=== PATIENT | male | born 1945 | race Caucasian/White ===

== ENCOUNTER 2016-06-05 11:22 | Inpatient (IN) | payer MEDICARE, OTHER ==
[~2016-06-05] VITALS: Ht 182.9 cm; Wt 167.1 kg
[2016-06-05] VITALS (8 sets, daily range): BP systolic 109–165; BP diastolic 57–86; PULSE 87–136; RESP 16–28; TEMP 97.4–99.1; O2SAT 94–98
[~2016-06-05 11:22] MED LIST: CELE100C OR; CEPH500C3 PO; LISI-360 PO; SULF-154 PO; VENTAER INH
[2016-06-05] MEDS ORDERED: SODIUM CHLORIDE 0.9% FLUSH 10 ML FLUSH IVF PRN (12:00)
[2016-06-05] MEDS ORDERED: SODIUM CHLOR 0.9% 1000 ML INJ 1,000 ML IV ONE (12:00)
--- NOTE | 2016-06-05 12:01 | PD ---
HPI Chief Complaint: Neuro Symptoms/ Deficits Time Seen by Provider: 12:01 Travel History International Travel<30 days: No Contact w/Intl Traveler<30days: No Traveled to known affect area: No History of Present Illness HPI 70-year-old male with history of hypertension and alcohol dependency, presents to emergency department for evaluation. The patient states that yesterday he had a brief episode where his speech was slurred. His states that it sounded similar to when he is drinking however the patient states he did not have anything to drink yesterday morning. This resolved and the patient was able to go about stay normally. Today he was working outside and when he came into his gradually began to tremor. Patient states he only has a slight resting tremor but this was full-body. His gave rate in a sugar he hasn't seemed to resolve. Patient denies any chest pain or tightness. He does report a Mild headache without any other focal deficits or weakness. Denies any recent illnesses, fever, chills. Patient states that he drinks 1-2 pints of vodka daily and stopped abruptly 2 days ago following an argument with his . He has no other symptoms to report this time. [facility] Past Medical History Arthritis: Yes Asthma: Yes Blood Disorders: No Cancer: No Cardiovascular Problems: Yes (MURMUR) Diabetes: No Diminished Hearing: No Endocrine: No Glaucoma: No Genitourinary: No Hepatitis: No Hiatal Hernia: No Hypertension: Yes Immune Disorder: No Medical other: Yes (hx of asthma) Musculoskeletal: Yes Neurologic: No Psychiatric: No Reproductive: No Respiratory: Yes (SLEEP APNEA, ASTHMA) Thyroid Disease: No Past Surgical History Abdominal Surgery: Yes (LEFT ING. HERNIA REP) Appendectomy: Yes Joint Replacement: Yes (BILAT KNEE) Oral Surgery: Yes (T & A) Pacemaker: No Other Surgery: Yes Social History Alcohol Use: Yes (DAILY, last drink 2 days ago ) Tobacco Use: No Substance Use: No Allergies-Medications (Allergen,Severity, Reaction): Coded Allergies: No Known Allergies (Verified , 06/05/16) Reported Meds & Prescriptions Reported Meds & Active Scripts Active Reported Lisinopril 10 Mg Tab 10 Mg PO DAILY Singulair (Montelukast Sodium) 5 Mg Chew Unknown Dose CHEW HS Ventolin Hfa 18 GM Inh (Albuterol Sulfate) 90 Mcg/Act Aer 1 Puff INH Q4H PRN Review of Systems Except as stated in HPI: all other systems reviewed are Neg Physical Exam Narrative GENERAL: Obese male patient, sitting up in bed, in no acute distress SKIN: Focused skin assessment warm/dry. HEAD: Atraumatic. Normocephalic. EYES: Pupils equal and round. No scleral icterus. No injection or drainage. ENT: No nasal bleeding or discharge. Mucous membranes pink and moist. NECK: Trachea midline. No JVD. CARDIOVASCULAR: Tachycardic rate and rhythm. No murmur appreciated. RESPIRATORY: No accessory muscle use. Diminished, likely due to girth, slight expiratory wheeze, intermittent to auscultation. Breath sounds equal bilaterally. GASTROINTESTINAL: Abdomen rotund soft, non-tender, nondistended. Hepatic and splenic margins not palpable. MUSCULOSKELETAL: No obvious deformities. No clubbing. No cyanosis. No edema. NEUROLOGICAL: Awake and alert. No obvious cranial nerve deficits. Motor grossly within normal limits. Normal speech. PSYCHIATRIC: Appropriate mood and affect; insight and judgment normal. Data Data Last Documented VS Vital Signs Date Time Temp Pulse Resp B/P Pulse Ox O2 Delivery O2 Flow Rate FiO2 06/05/16 13:48 110 18 141/80 94 Room Air 06/05/16 11:24 99.1 Orders Electrocardiogram (06/05/16 11:59) Prothrombin Time / Inr (Pt) (06/05/16 11:59) Act Partial Throm Time (Ptt) (06/05/16 11:59) Complete Blood Count With Diff (06/05/16 11:59) Comprehensive Metabolic Panel (06/05/16 11:59) Drug Screen, Random Urine (06/05/16 11:59) Troponin I (06/05/16 11:59) Urinalysis - C+S If Indicated (06/05/16 11:59) Ct Brain W/O Iv Contrast(Rout) (06/05/16 11:59) Chest, Single Ap (06/05/16 11:59) Ecg Monitoring (06/05/16 11:59) Iv Access Insert/Monitor (06/05/16 11:59) Oximetry (06/05/16 11:59) Sodium Chloride 0.9% Flush (Ns Flush) (06/05/16 12:00) Sodium Chlor 0.9% 1000 Ml Inj (Ns 1000 M (06/05/16 12:00) Lorazepam Inj (Ativan Inj) (06/05/16 13:30) Labs Laboratory Tests Test 06/05/16 12:05 White Blood Count 13.5 TH/MM3 Red Blood Count 4.65 MIL/MM3 Hemoglobin 15.0 GM/DL Hematocrit 44.3 % Mean Corpuscular Volume 95.2 FL Mean Corpuscular Hemoglobin 32.3 PG Mean Corpuscular Hemoglobin 33.9 % Concent Red Cell Distribution Width 15.1 % Platelet Count 311 TH/MM3 Mean Platelet Volume 7.3 FL Neutrophils (%) (Auto) 91.8 % Lymphocytes (%) (Auto) 4.4 % Monocytes (%) (Auto) 3.1 % Eosinophils (%) (Auto) 0.1 % Basophils (%) (Auto) 0.6 % Neutrophils # (Auto) 12.4 TH/MM3 Lymphocytes # (Auto) 0.6 TH/MM3 Monocytes # (Auto) 0.4 TH/MM3 Eosinophils # (Auto) 0.0 TH/MM3 Basophils # (Auto) 0.1 TH/MM3 CBC Comment DIFF FINAL Differential Comment Prothrombin Time 10.6 SEC Prothromb Time International 1.0 RATIO Ratio Activated Partial 25.2 SEC Thromboplast Time Sodium Level 137 MEQ/L Potassium Level 3.9 MEQ/L Chloride Level 102 MEQ/L Carbon Dioxide Level 25.5 MEQ/L Anion Gap 10 MEQ/L Blood Urea Nitrogen 14 MG/DL Creatinine 1.19 MG/DL Estimat Glomerular Filtration 61 ML/MIN Rate Random Glucose 125 MG/DL Calcium Level 9.1 MG/DL Total Bilirubin 0.9 MG/DL Aspartate Amino Transf 12 U/L (AST/SGOT) Alanine Aminotransferase 26 U/L (ALT/SGPT) Alkaline Phosphatase 105 U/L Troponin I LESS THAN 0.02 NG/ML Total Protein 7.3 GM/DL Albumin 3.5 GM/DL [facility] Medical Decision Making Medical Screen Exam Complete: Yes Emergency Medical Condition: Yes Medical Record Reviewed: Yes Differential Diagnosis TIA versus CVA versus elect slight abnormality versus alcohol withdrawal versus DTs Narrative Course 70-year-old male presents to emergency department for evaluation. Patient had an isolated episode yesterday of slurred speech. Today he had an episode of tremors. Patient stops drinking alcohol 2 days ago. He is tachycardic here in the emergency department. He has no focal deficits or weakness. CT imaging of the brain is without acute concern. Chest x-ray is without acute concern. He is with mild leukocytosis of 13.5, mild neutrophilia of 12.4. CBC is without acute concern. Troponin is less than 0.02. After IV fluids, patient remains tachycardic. I discussed the patient maintaining physician Dr. Herring who agrees the patient benefit from observation for further possible TIA workup and alcohol withdrawal.. At then placed to [facility] with a primary care provider is Dr. Yesenia Miles. I spoke with Dr. Muhammad. Patient will be admitted the patient to [facility]. Diagnosis Primary Impression: TIA (transient ischemic attack) Qualified Code: G45.9 - Transient cerebral ischemia, unspecified type Additional Impression: Alcohol withdrawal Qualified Code: F10.239 - Alcohol withdrawal, with unspecified complication Admitting Information Admitting Physician Requests: Observation Condition: Stable Joie Hernadez Jun 05, 2016 12:01
[2016-06-05] MEDS ORDERED: VENTAER INH (12:02)
[2016-06-05] MEDS ORDERED: MONT5CHW2 CHEW (12:02)
[2016-06-05] MEDS ORDERED: LISI10TA3 PO (12:02)
[2016-06-05 12:16] LABS: AUTOMATED NEUTROPHIL # 12.4 TH/MM3 (1.8-7.7); BASOPHIL # 0.1 TH/MM3 (0-0.2); BASOPHIL % 0.6 % (0.0-2.0); EOSINOPHIL % 0.1 % (0.0-4.0); HEMATOCRIT 44.3 % (39.0-51.0); HEMO FLAGS DIFF FINAL; LYMPH % 4.4 % (9.0-44.0); LYMPHOCYTE # 0.6 TH/MM3 (1.0-4.8); MEAN CELL VOLUME 95.2 FL (80.0-100.0); MEAN CORPUSCULAR HEMOGLOBIN 32.3 PG (27.0-34.0); MEAN CORPUSCULAR HGB CONC 33.9 % (32.0-36.0); MONO % 3.1 % (0.0-8.0); NEUT % 91.8 % (16.0-70.0); PLATELET COUNT 311 TH/MM3 (150-450); RED BLOOD COUNT 4.65 MIL/MM3 (4.50-5.90); RED CELL DISTRIBUTION WIDTH 15.1 % (11.6-17.2); WHITE BLOOD COUNT 13.5 TH/MM3 (4.0-11.0)
[2016-06-05 12:26] LABS: APTT (PATIENT) 25.2 SEC (24.3-30.1); PROTHROMBIN TIME - PATIENT 10.6 SEC (9.8-11.6)
[2016-06-05 12:37] LABS: ALT (GPT) 26 U/L (12-78); ANION GAP 10 MEQ/L (5-15); AST (GOT) 12 U/L (15-37); BICARBONATE 25.5 MEQ/L (21.0-32.0); BLOOD UREA NITROGEN 14 MG/DL (7-18); CHLORIDE 102 MEQ/L (98-107); GLOMERULAR FILTRATION RATE 61 ML/MIN (>89); POTASSIUM 3.9 MEQ/L (3.5-5.1); SODIUM (NA) 137 MEQ/L (136-145)
[2016-06-05 12:40] LABS: ALKALINE PHOSPHATASE 105 U/L (45-117); TOTAL BILIRUBIN ADULT 0.9 MG/DL (0.2-1.0)
--- NOTE | 2016-06-05 13:04 | RADRPT ---
EXAM DATE/TIME: 06/05/2016 12:42 [facility] COMPARISON: No previous studies available for comparison. INDICATIONS : Episode of skakiness and diaphoretic today. RADIATION DOSE: 42.76 CTDIvol (mGy) MEDICAL HISTORY : Cardiovascular disease. Hypertension. SURGICAL HISTORY : Appendectomy. ENCOUNTER: Initial ACUITY: 1 day PAIN SCALE: 0/10 LOCATION: cranial TECHNIQUE: Multiple contiguous axial images were obtained of the head. Using automated exposure control and adj ustment of the mA and/or kV according to patient size, radiation dose was kept as low as reasonably a chievable to obtain optimal diagnostic quality images. FINDINGS: CEREBRUM: The ventricles are normal for age. No evidence of midline shift, mass lesion, hemorrhage or acute in farction. No extra-axial fluid collections are seen. POSTERIOR FOSSA: The cerebellum and brainstem are intact. The 4th ventricle is midline. The cerebellopontine angle i s unremarkable. EXTRACRANIAL: The visualized portion of the orbits is intact. SKULL: The calvaria is intact. No evidence of skull fracture. CONCLUSION: Negative for acute process. Chirag Painting MD FACR on June 05, 2016 at 13:02 Board Certified Radiologist. This report was verified electronically.
--- NOTE | 2016-06-05 13:18 | RADRPT ---
EXAM DATE/TIME: 06/05/2016 12:27 [facility] COMPARISON: No previous studies available for comparison. INDICATIONS : Short of Breath MEDICAL HISTORY : Cardiovascular disease. Hypertension SURGICAL HISTORY : Appendectomy. ENCOUNTER: Initial ACUITY: 1 day PAIN SCORE: 0/10 LOCATION: Bilateral chest FINDINGS: A single view of the chest demonstrates the lungs to be symmetrically aerated without evidence of mas s, infiltrate or effusion. The cardiomediastinal contours are unremarkable. Osseous structures are intact. CONCLUSION: No acute disease. Chirag Painting MD FACR on June 05, 2016 at 13:08 Board Certified Radiologist. This report was verified electronically.
[2016-06-05] MEDS ORDERED: LORazepam 2 MG/ML VIAL IV PUSH ONE (13:30)
[2016-06-05 14:21] LABS: BACTERIA, URINE MANY /hpf; BLOOD, URINE MOD (NEG); GLUCOSE,URINE NEG (NEG); HYALINE CAST, URINE 20 /lpf (RARE); KETONE, URINE TRACE mg/dL (NEG); MUCUS URINE MOD /lpf (OCC); NITRITE,URINE NEG (NEG); PH, URINE 5.5 (5.0-8.5); SQUAMOUS EPITHELIAL CELL URINE 1 /hpf (0-5); URINE COLOR YELLOW (YELLW/STRAW)
[2016-06-05 14:25] LABS: COMMENT (UR) CATH-CULTURE IND; CULTURE IF INDICATED CATH CULTURE IND
[2016-06-05 14:59] LABS: AMPHETAMINE, URINE NEG (NEG); BARBITURATES, URINE NEG (NEG); COCAINE, URINE NEG (NEG)
[2016-06-05] MEDS ORDERED: LORazepam 2 MG/ML VIAL IV PUSH PRN ×3 (15:00)
[2016-06-05] MEDS ORDERED: SODIUM CHLORIDE 0.9% FLUSH 10 ML FLUSH IV FLUSH PRN (15:00)
[2016-06-05] MEDS ORDERED: CEFTRIAXONE PED IV SCH (15:00)
[2016-06-05] MEDS ORDERED: LORazepam 1 MG TAB PO PRN (15:00)
[2016-06-05] MEDS ORDERED: FLUMAZENIL 0.5 MG/5 ML VIAL IV PUSH PRN (15:00)
[2016-06-05] MEDS ORDERED: LORazepam 2 MG TAB PO PRN (15:00)
[2016-06-05] MEDS: SODIUM CHLOR 0.9% 1000 ML INJ 1,000 ML IV SCH ×2 (16:11→17:51)
[2016-06-05] MEDS: ASPIRIN 81 MG CHEW TAB PO SCH (16:11)
[2016-06-05] MEDS: HEPARIN SODIUM - SQ 10,000 UNITS/ML VIAL SQ SCH (16:11)
[2016-06-05] MEDS ORDERED: ceFAZolin 1,000 MG/NS 100 ML IV SCH ×2 (17:00)
[2016-06-05 17:03] LABS: HEMOGLOBIN A1b 1.4 %; HEMOGLOBIN Ao 85.1 %; HEMOGLOBIN LA1C 2.4 %; HEMOGLOBIN P3 3.7 %
[2016-06-05] MEDS: cefTRIAXone 1,000 MG/NS 100 ML IV SCH ×2 (17:52)
--- NOTE | 2016-06-05 17:57 | EC ---
Study Study Date:06/05/2016 STUDY CONCLUSIONS SUMMARY - Procedure narrative: Transthoracic echocardiography. Image quality was very poor. Scanning was performed from the parasternal, apical, and subcostal acoustic windows. - Left ventricle: The cavity size was normal. Wall thickness was normal. Systolic function was normal. The estimated ejection fraction was in the range of 60% to 65%. Regional wall motion abnormalities cannot be excluded. - Aortic valve: Poorly visualized. Mean gradient: 19mm Hg suggesting the possibility of mild stenosis, though Doppler waveforms are very suboptimal. - Tricuspid valve: Poorly visualized. If LV function is below 40, please consider prescribing an ACEI or ARB or document rationale for non-use. PROCEDURE DATA STUDY STATUS: Elective. Procedure: Transthoracic echocardiography. Image quality was very poor. Scanning was performed from the parasternal, apical, and subcostal acoustic windows. Study completion: The patient tolerated the procedure well. Transthoracic echocardiography. M-mode, complete 2D, complete spectral Doppler, and color Doppler. Height: Height: 72in. Weight: Weight: 370.2lb. Body mass index: BMI: 50.3kg/m^2. Body surface area: BSA: 2.77m^2. Patient status: Inpatient. CARDIAC ANATOMY LEFT VENTRICLE: The cavity size was normal. Wall thickness was normal. Systolic function was normal. The estimated ejection fraction was in the range of 60% to 65%. Regional wall motion abnormalities cannot be excluded. AORTIC VALVE: Poorly visualized. Trileaflet; normal thickness leaflets. Doppler: Transvalvular velocity was within the normal range. There was no stenosis. No regurgitation. Valve area: 1.09cm^2(VTI). Indexed valve area: 0.39cm^2/m^2 (VTI). Valve area: 1.15cm^2 (Vmax). Indexed valve area: 0.42cm^2/m^2 (Vmax). Mean gradient: 19mm Hg suggesting the possibility of mild stenosis, though Doppler waveforms are very suboptimal. Peak gradient: 31mm Hg (S). AORTA: Aortic root: The aortic root was normal in size. MITRAL VALVE: Structurally normal valve. Doppler: Transvalvular velocity was within the normal range. There was no evidence for stenosis. No regurgitation. Peak gradient: 3mm Hg (D). LEFT ATRIUM: The atrium was normal in size. RIGHT VENTRICLE: The cavity size was normal. Wall thickness was normal. PULMONIC VALVE: Doppler: Transvalvular velocity was within the normal range. There was no evidence for stenosis. No regurgitation. TRICUSPID VALVE: Poorly visualized. Structurally normal valve. Doppler: Transvalvular velocity was within the normal range. No regurgitation. PULMONARY ARTERY: The main pulmonary artery was normal-sized. Systolic pressure was within the normal range. RIGHT ATRIUM: The atrium was normal in size. PERICARDIUM: There was no pericardial effusion. SYSTEMIC VEINS: Inferior vena cava: The vessel was normal in size. Patient weight: 370.2lb _Ejection fraction:_ 65-75% _Fractional shortening:_ 32% up to 5Kg 5-11.5Kg 11.6-22.9Kg 23-45Kg 45-57Kg Aortic Root 7-13 <17 13-22 17-27 17-27 LA diam 6-13 <23 24-38 33-47 37-40 RVID 10-17 7-15 7-15 7-18 8-17 LVIDd 12-22 <32 24-38 33-47 37-40 LVPW 2-4 3-6 5-7 6-8 7-8 IVS 2-4 3-6 5-7 6-8 7-8 BASIC MEASUREMENTS ADULT NORMAL Left ventricle LV internal dimension, ED, chordal 48.4 mm 43-52 level, PLAX LV internal dimension, ES, chordal 33.4 mm 23-38 level, PLAX Fractional shortening, chordal level, 31 % >29 PLAX LV posterior wall thickness, ED 10.3 mm IVS/LVPW ratio, ED 0.98 <1.3 Ventricular septum Septal thickness, ED 10.1 mm Aortic valve Leaflet separation *13 mm 15-26 Aorta Root diameter, ED 27 mm Left atrium Anterior-posterior dimension 27 mm Anterior-posterior dimension index 0.97 cm/m^2 <2.2 BASIC MEASUREMENTS ADULT NORMAL Aortic valve Leaflet separation *13 mm 15-26 DOPPLER MEASUREMENTS ADULT NORMAL Aortic valve Peak velocity, S 278 cm/s Mean velocity, S 200 cm/s VTI, S 45.6 cm Mean gradient, S 19 mm Hg Peak gradient, S 31 mm Hg Valve area, VTI 1.09 cm^2 Valve area index, VTI 0.39 cm^2/m^2 Valve area, Vmax 1.15 cm^2 Valve area index, Vmax 0.42 cm^2/m^2 Mitral valve Peak E-wave velocity 85.9 cm/s Peak A-wave velocity 105 cm/s Deceleration time 176 ms 150-230 Peak gradient, D 3 mm Hg Peak E/A ratio 0.8 Pulmonic valve Peak velocity, S 75.2 cm/s LEGEND: Mean values are shown as u=mean value. Asterisk (*) bueno values outside specified normal range. Prepared and signed by Marek Bass [id number]
--- NOTE | 2016-06-05 18:01 | RADRPT ---
EXAM DATE/TIME: 06/05/2016 17:12 [facility] COMPARISON: No previous studies available for comparison. INDICATIONS : Slurred speech. Tremor. MEDICAL HISTORY : Hypertension. SURGICAL HISTORY : Total knee replacement, left. Total knee replacement, right. ENCOUNTER: Subsequent ACUITY: 1 day PAIN SCORE: 0/10 LOCATION: head. Please note a normal MRA of the brain does not entirely exclude the possibility of a small aneurysm, nor the possibility of distal intracranial vessel disease. TECHNIQUE: 3D time of flight MRA was performed. Source images, multiplanar STS MIP, and 3D volume MIP reconstru ctions were reviewed. FINDINGS: Mild atherosclerotic intracranial vascular disease is evident. There is no aneurysm or vascular disp lacement. CONCLUSION: Mild atherosclerotic intracranial vascular disease. Chirag Painting MD FACR on June 05, 2016 at 17:59 Board Certified Radiologist. This report was verified electronically.
--- NOTE | 2016-06-05 18:05 | MH ---
cc: ROHIT MUHAMMAD DATE OF ADMISSION 06/05/2016 DATE OF 1945 Travel in the past 30 days none. CHIEF COMPLAINT Tremors, slurred speech. HISTORY OF THE PRESENT ILLNESS This is a pleasant 70-year-old white male who has come in to the emergency room for evaluation. He was in his usual state of health until the past few days when his and he noted some slurred speech yesterday. The patient is a chronic alcohol abuser and according to the has been a heavy drinker for the past 10 years. She also notes that the drinking has been even heavier over the past two years. The patient and his had a discussion about the alcohol and he had cold turkeyed any alcohol intake for the past two days. The patient did note a mild headache this past evening but other than that denies any fever, chills. No chest pain. No shortness of breath. No nausea or vomiting, diarrhea or constipation. The patient was outside this a.m. working in the yard. He states that he had nothing to eat and he noted some lightheadedness. He came in to get some Gatorade and to sit down for a few minutes and had a hard chill which he described as tremors all over his body. His at that point called EMS to ring him to the hospital to be evaluated. The patient also had noted some slurred speech today during that period of time. The patient is morbidly obese, resting on the stretcher, alert, oriented and a good historian. The patient does appear slightly anxious and does note panic attacks or anxiety at home sometimes. He states that he sometimes has no reason for the panic attacks to occur. PAST MEDICAL HISTORY Medical history includes: 1. Arthritis. 2. Asthma / chronic obstructive pulmonary disease. 3. Obstructive sleep apnea. The patient does use a CPAP every night at home. 4. Hypertension. 5. Ethyl alcohol abuse daily. 6. Morbid obesity. PAST SURGICAL HISTORY 1. Left inguinal hernia repair. 2. Bilateral knee surgery. 3. Tonsillectomy and adenoidectomy. 4. Appendectomy. ALLERGIES NONE KNOWN. MEDICATIONS Reported: 1. Lisinopril. 2. Singulair. 3. Ventolin. SOCIAL HISTORY The patient is and currently lives at home with his . He has a grown daughter who is also present here at the hospital. The patient denies any tobacco abuse. Alcohol abuse has been constant since age of 32s. Describes heavier drinking over the past 10 years and even heavier drinking for the past two years. He states that he drinks one-half pint to two one-half pints of vodka sometimes mixes it with some type of fluids or drinks it alone. No illicit drugs. REVIEW OF SYSTEMS A 12 point review was done. Positives are noted in the history of present illness as well as negatives. Currently the patient is negative for any tremors. Negative for any headaches. He has equal hand flap lining binder. His speech is clear. These are some of the positive symptoms that he had on admission. Other positives noted urinary frequency in the past 24 hours to 48 hours at night especially. Some mild dysuria, this early a.m. with voiding. PHYSICAL EXAMINATION VITAL SIGNS: Temperature is 99.1, pulse labile between 103-136. Respiratory rate labile between 18-28. Blood pressure initially in the emergency room 123/68, now 140/63. O2 saturation 95% on room air. GENERAL: Morbidly obese white male looks to be his stated age, resting in the bed. His speech is clear. and daughter are present assisting with his history but he too is a good historian. SKIN: [place], warm and dry. No rashes. HEENT: Atraumatic, normocephalic. Pupils equal, round, reactive to light and accommodation at 3. Mucous membranes are moist and pink. He has no exudate. NECK: Thick. Supple. Trachea is midline. CARDIOVASCULAR: S1-S2. Positive for a soft systolic murmur at the left sternal border grade 2/6. He does have bilateral pedal edema. His pulses are intact. LUNGS: His lungs are essentially clear anteriorly and posteriorly with no wheezes, rhonchi or rales. ABDOMEN: Obese. Round. Soft. Active bowel sounds in all four quadrants. MUSCULOSKELETAL: He moves his extremities with purpose. He can overcome resistance. He has no clubbing, no cyanosis. NEUROLOGIC: He is alert, oriented. Speech is clear. LABORATORY DATA Diagnostic data, WBC count 13.5, RBC 4.65, hemoglobin 15, hematocrit 44.3, platelet count 311. Neutrophil auto count 91.8. Lymphocytes 4.4. Monocytes 3.1. Chemistries, sodium 137, potassium 3.9, chloride 102, carbon dioxide 25.5, anion gap 10, BUN 14, creatinine 1.19. GFR 61. Random glucose 125. He has an A1c that is pending. Calcium 9.1. AST 12, ALT 26. Alkaline phosphatase 105. Troponin less than 0.02. Total protein 7.3. Albumin 3.5. Urine is yellow, cloudy, pH of 5.5, specific gravity 1.018, protein positive at 100. Negative glucose. Trace ketones. Moderate amount of blood. Negative for nitrites, bilirubin. 2 urobilinogen. Leukocyte esterase large. Rbc's count 100, many white count clumps. Urine bacteria many. Moderate amount of mucus. Culture and sensitivity has been ordered. Toxicology screen is negative for opiates, barbiturates, amphetamines, benzodiazepines, cocaine and cannabis. PT / INR is 1. IMAGING A chest x-ray shows no acute disease. Head CT scan negative for any acute process. ASSESSMENT AND PLAN 1. Transient ischemic attack, rule out cerebrovascular accident. 2. Alcohol withdrawal possible. 3. Urinary tract infection. 4. Alcohol abuse dependence. 5. Chronic obstructive pulmonary disease with obstructive sleep apnea. 6. Hypertension. 7. Panic disorder. The patient does appear slightly anxious and does note panic attacks or anxiety at home sometimes. He states that he sometimes has no reason for the panic attacks to occur. Our plan is to admit inpatient status. We will monitor his vital signs q.2h times 12 and then every four or less often as warranted. Neurological checks q.2 x 12 and then q.4h and more often as warranted. Medications have been reconciled. The patient has had initial CT scan of the brain. He will have MRI MRA this afternoon. We will consult neurology for his expert opinion. The patient is positive for urinary tract infection. Urine culture is pending but we will go ahead and give him Rocephin IV and he will be on Rocephin daily. Deep venous thrombosis prophylaxis with heparin. Alcohol withdrawal orders which will include Ativan. Cardiac monitoring. The patient is not a non diabetic but does have mildly elevated blood glucoses. We will do Accu-Chek before meals an bedtime. Sliding scale insulin if needed. His A1c is pending. The patient can be out of the bed to bedside commode and up in the chair with assistance for his safety. We will place him on ASA. We will give him Protonix for peptic ulcer disease prophylaxis. Sequential compression devices. Nurse will evaluate swallow at the bedside. Consulted stroke navigator. Monitor his alcohol withdrawal. He will also have gentle hydration, regular diet. The patient has multiple medical comorbidities which we are going to require active aggressive treatment and we will follow. Dictated by: ELISA Whaley Rohit Muhammad MD JP/ALMA ROSA /5:06 PM /5:21 PM PT SEEN AND EXAMINED IN DAY OF ADMISSION ABOVE CHART WAS REVIEWED PLAN OF CARE WAS MORENA MORTENSEN
--- NOTE | 2016-06-05 18:11 | HHI.PR ---
Objective Objective Results - Vital Signs Date Time Temp Pulse Resp B/P Pulse Ox O2 Delivery O2 Flow Rate FiO2 06/05/16 16:32 103 18 140/63 95 Room Air 06/05/16 14:41 113 16 109/57 95 Room Air 06/05/16 13:48 110 18 141/80 94 Room Air 06/05/16 12:40 98 Room Air 06/05/16 11:55 133 18 94 Room Air 06/05/16 11:24 99.1 136 28 123/68 94 Room Air Result Diagram: 06/05/16 1205 06/05/16 1205 Other Results Laboratory Tests Test 06/05/16 06/05/16 12:05 13:30 White Blood Count 13.5 Red Blood Count 4.65 Hemoglobin 15.0 Hematocrit 44.3 Mean Corpuscular Volume 95.2 Mean Corpuscular Hemoglobin 32.3 Mean Corpuscular Hemoglobin 33.9 Concent Red Cell Distribution Width 15.1 Platelet Count 311 Mean Platelet Volume 7.3 Neutrophils (%) (Auto) 91.8 Lymphocytes (%) (Auto) 4.4 Monocytes (%) (Auto) 3.1 Eosinophils (%) (Auto) 0.1 Basophils (%) (Auto) 0.6 Neutrophils # (Auto) 12.4 Lymphocytes # (Auto) 0.6 Monocytes # (Auto) 0.4 Eosinophils # (Auto) 0.0 Basophils # (Auto) 0.1 CBC Comment DIFF FINAL Differential Comment Prothrombin Time 10.6 Prothromb Time International 1.0 Ratio Activated Partial 25.2 Thromboplast Time Sodium Level 137 Potassium Level 3.9 Chloride Level 102 Carbon Dioxide Level 25.5 Anion Gap 10 Blood Urea Nitrogen 14 Creatinine 1.19 Estimat Glomerular Filtration 61 Rate Random Glucose 125 Hemoglobin A1c 5.5 Calcium Level 9.1 Total Bilirubin 0.9 Aspartate Amino Transf 12 (AST/SGOT) Alanine Aminotransferase 26 (ALT/SGPT) Alkaline Phosphatase 105 Troponin I LESS THAN 0.02 Total Protein 7.3 Albumin 3.5 Urine Color YELLOW Urine Turbidity CLOUDY Urine pH 5.5 Urine Specific [place] 1.018 Urine Protein 100 Urine Glucose (UA) NEG Urine Ketones TRACE Urine Occult Blood MOD Urine Nitrite NEG Urine Bilirubin NEG Urine Urobilinogen 2.0 Urine Leukocyte Esterase LARGE Urine RBC 100 Urine WBC Urine WBC Clumps MANY Urine Squamous Epithelial 1 Cells Urine Bacteria MANY Urine Hyaline Casts 20 Urine Mucus MOD Microscopic Urinalysis Comment CATH-CULTURE IND Urine Opiates Screen NEG Urine Barbiturates Screen NEG Urine Amphetamines Screen NEG Urine Benzodiazepines Screen NEG Urine Cocaine Screen NEG Urine Cannabinoids Screen NEG Date/Time Procedure Status Source Growth 06/05/16 13:30 Urine Culture Received Urine Catheterized Urine Pending A/P Assessment and Plan PT SEEN AND EXAMINED WITH AND DAUGHTER AT BEDSIDE FACE TO FACE TO TIME SPENT WITH PT CHART WAS REVIEWED INCLUDING LABS MEDS AND RAD DATA PLAN OF CARE WAS MORENA PÉREZ IN DETAIL ABOVE DW PT, AND DAUGHTER COUNCELLED ABOUT ETOH CESSATION H/P APOORVA FOLLOWED BY Joann Washington MD Jun 05, 2016 18:11
--- NOTE | 2016-06-05 18:38 | RADRPT ---
EXAM DATE/TIME: 06/05/2016 17:12 [facility] COMPARISON: No previous studies available for comparison. INDICATIONS : Slurred speech. Tremor. MEDICAL HISTORY : Hypertension. SURGICAL HISTORY : Total knee replacement, right. Total knee replacement, left. ENCOUNTER: Subsequent ACUITY: 1 day PAIN SCORE: 0/10 LOCATION: head. TECHNIQUE: Multiplanar, multisequence MRI of the brain was performed without contrast. FINDINGS: CEREBRUM: The ventricles are normal for age. No evidence of midline shift, mass lesion, hemorrhage or acute in farction. No extraaxial fluid collections are seen. The pituitary gland and suprasellar cistern are normal in configuration. WHITE MATTER: Mild signal abnormalities are seen in the white matter. POSTERIOR FOSSA: The cerebellum and brainstem are intact. The 4th ventricle is midline. The cerebellopontine angle is unremarkable. The cerebellar tonsils are normal in position. DIFFUSION IMAGING: No focal areas of restricted diffusion are seen. No evidence of acute infarction. EXTRACRANIAL: The visualized portions of the orbits and paranasal sinuses are unremarkable. CONCLUSION: No acute findings. No recent infarct. Mild chronic ischemic changes in the periventricular white mandi er. Roldan Casarez MD on June 05, 2016 at 18:34 Board Certified Radiologist. This report was verified electronically.
[2016-06-05] MEDS: PANTOPRAZOLE SOD 40 MG DELAYED RELEASE TAB PO SCH (20:38)
[2016-06-05] MEDS: SODIUM CHLORIDE 0.9% FLUSH 10 ML FLUSH IV FLUSH SCH (20:38)
--- NOTE | 2016-06-05 22:59 | RADRPT ---
EXAM DATE/TIME: 06/05/2016 21:31 [facility] COMPARISON: No previous studies available for comparison. INDICATIONS : Cerebrovascular accident. MEDICAL HISTORY : Hypertension. Arthritis. Syncope. Asthma. Sleep apnea. SURGICAL HISTORY : Appendectomy. Cardiac cyst removal. Hernia repair. Bilateral knee surgery. Ankle surgery. ENCOUNTER: Initial ACUITY: 1 day PAIN SCORE: 0/10 LOCATION: Bilateral neck PEAK SYSTOLIC VELOCITIES (cm/sec): ICA/CCA RATIO: Right: 0.9 Left: 1.0 ICA: Right: 97 Left: 92 CCA: Right: 107 Left: 90 ECA: Right: 70 Left: 79 VERTEBRAL: Right: 147 antegrade Left: 52 antegrade Elevated flow velocities and ICA/CCA ratios have been found to correlate with increased degrees of vessel stenosis, calculated as percentage of diameter relative to a normal segment of distal ICA/CCA FINDINGS: RIGHT CAROTID: No significant stenosis is visualized. The waveforms are within normal limits. LEFT CAROTID: No significant stenosis is visualized. The waveforms are within normal limits. VERTEBRAL ARTERIES: Antegrade flow is seen in both vertebral arteries. MISCELLANEOUS: None. CONCLUSION: 1. No hemodynamically significant stenosis identified in the carotid arteries. Vertebral artery flow is antegrade. Roldan Casarez MD on June 05, 2016 at 22:57 Board Certified Radiologist. This report was verified electronically.
[2016-06-06] VITALS (7 sets, daily range): BP systolic 134–158; BP diastolic 63–95; PULSE 63–145; RESP 18–26; TEMP 97.3–98.9; O2SAT 94–100
[2016-06-06] MEDS: LORazepam 2 MG/ML VIAL IV PUSH PRN ×2 (03:28→06:31)
[2016-06-06] MEDS: HEPARIN SODIUM - SQ 10,000 UNITS/ML VIAL SQ SCH ×2 (03:40→16:00)
[2016-06-06 06:16] LABS: AUTOMATED NEUTROPHIL # 10.4 TH/MM3 (1.8-7.7); BASOPHIL # 0.1 TH/MM3 (0-0.2); BASOPHIL % 1.2 % (0.0-2.0); HEMATOCRIT 42.1 % (39.0-51.0); HEMO FLAGS DIFF FINAL; LYMPH % 3.4 % (9.0-44.0); LYMPHOCYTE # 0.4 TH/MM3 (1.0-4.8); MEAN CELL VOLUME 96.7 FL (80.0-100.0); MEAN CORPUSCULAR HEMOGLOBIN 31.6 PG (27.0-34.0); MEAN CORPUSCULAR HGB CONC 32.6 % (32.0-36.0); MONO % 6.6 % (0.0-8.0); NEUT % 88.8 % (16.0-70.0); PLATELET COUNT 258 TH/MM3 (150-450); RED BLOOD COUNT 4.35 MIL/MM3 (4.50-5.90); RED CELL DISTRIBUTION WIDTH 15.3 % (11.6-17.2); WHITE BLOOD COUNT 11.7 TH/MM3 (4.0-11.0)
[2016-06-06 06:38] LABS: BICARBONATE 23.1 MEQ/L (21.0-32.0); POTASSIUM 3.7 MEQ/L (3.5-5.1)
[2016-06-06 06:40] LABS: HDL CHOLESTEROL 66.9 MG/DL (40.0-60.0)
[2016-06-06] MEDS: SODIUM CHLORIDE 0.9% FLUSH 10 ML FLUSH IV FLUSH SCH ×2 (09:00→19:57)
[2016-06-06] MEDS: ASPIRIN 81 MG CHEW TAB PO SCH (09:00)
--- NOTE | 2016-06-06 10:03 | HHI.PR ---
Subjective Subjective Remarks Sitting up in chair Alert, oriented 3 No tremors No fever No chest pain No shortness of breath Overnight received Ativan as he became shaky, now improved Patient indicates that he is done with drinking, he would like to go home today Review of Systems Constitutional Constitutional Remarks 12 point review systems completed, negative except as noted above Vitals/Results Intake & Output 06/05/16 06/05/16 06/06/16 15:00 23:00 07:00 Intake Total 600 ml 500 ml Output Total 800 ml 300 ml Balance -200 ml 200 ml Intake Oral 600 ml 500 ml Output Urine Total 800 ml 300 ml # Voids 1 1 # Bowel Movements 0 Vital Signs Vital Signs Date Time Temp Pulse Resp B/P Pulse Ox O2 Delivery O2 Flow Rate FiO2 06/06/16 08:00 97.8 95 20 146/79 95 06/06/16 04:48 98.7 145 26 153/80 95 06/06/16 00:35 98.9 102 22 137/63 100 06/05/16 21:21 97.9 87 20 165/86 96 06/05/16 20:00 90 06/05/16 17:30 97.4 99 20 133/76 96 06/05/16 16:32 103 18 140/63 95 Room Air 06/05/16 14:41 113 16 109/57 95 Room Air 06/05/16 13:48 110 18 141/80 94 Room Air 06/05/16 12:40 98 Room Air 06/05/16 11:55 133 18 94 Room Air 06/05/16 11:24 99.1 136 28 123/68 94 Room Air CBC/BMP: 06/06/16 0543 06/06/16 0543 Lab Results Laboratory Tests Test 06/05/16 06/05/16 06/06/16 12:05 13:30 05:43 White Blood Count 13.5 TH/MM3 11.7 TH/MM3 Red Blood Count 4.65 MIL/MM3 4.35 MIL/MM3 Hemoglobin 15.0 GM/DL 13.7 GM/DL Hematocrit 44.3 % 42.1 % Mean Corpuscular Volume 95.2 FL 96.7 FL Mean Corpuscular Hemoglobin 32.3 PG 31.6 PG Mean Corpuscular Hemoglobin 33.9 % 32.6 % Concent Red Cell Distribution Width 15.1 % 15.3 % Platelet Count 311 TH/MM3 258 TH/MM3 Mean Platelet Volume 7.3 FL 7.4 FL Neutrophils (%) (Auto) 91.8 % 88.8 % Lymphocytes (%) (Auto) 4.4 % 3.4 % Monocytes (%) (Auto) 3.1 % 6.6 % Eosinophils (%) (Auto) 0.1 % 0.0 % Basophils (%) (Auto) 0.6 % 1.2 % Neutrophils # (Auto) 12.4 TH/MM3 10.4 TH/MM3 Lymphocytes # (Auto) 0.6 TH/MM3 0.4 TH/MM3 Monocytes # (Auto) 0.4 TH/MM3 0.8 TH/MM3 Eosinophils # (Auto) 0.0 TH/MM3 0.0 TH/MM3 Basophils # (Auto) 0.1 TH/MM3 0.1 TH/MM3 CBC Comment DIFF FINAL DIFF FINAL Differential Comment Prothrombin Time 10.6 SEC Prothromb Time International 1.0 RATIO Ratio Activated Partial 25.2 SEC Thromboplast Time Sodium Level 137 MEQ/L 140 MEQ/L Potassium Level 3.9 MEQ/L 3.7 MEQ/L Chloride Level 102 MEQ/L 106 MEQ/L Carbon Dioxide Level 25.5 MEQ/L 23.1 MEQ/L Anion Gap 10 MEQ/L 11 MEQ/L Blood Urea Nitrogen 14 MG/DL 14 MG/DL Creatinine 1.19 MG/DL 1.17 MG/DL Estimat Glomerular Filtration 61 ML/MIN 62 ML/MIN Rate Random Glucose 125 MG/DL 139 MG/DL Hemoglobin A1c 5.5 % Calcium Level 9.1 MG/DL 8.9 MG/DL Total Bilirubin 0.9 MG/DL Aspartate Amino Transf 12 U/L (AST/SGOT) Alanine Aminotransferase 26 U/L (ALT/SGPT) Alkaline Phosphatase 105 U/L Troponin I LESS THAN 0.02 NG/ML Total Protein 7.3 GM/DL Albumin 3.5 GM/DL Urine Color YELLOW Urine Turbidity CLOUDY Urine pH 5.5 Urine Specific [place] 1.018 Urine Protein 100 mg/dL Urine Glucose (UA) NEG mg/dL Urine Ketones TRACE mg/dL Urine Occult Blood MOD Urine Nitrite NEG Urine Bilirubin NEG Urine Urobilinogen 2.0 MG/DL Urine Leukocyte Esterase LARGE Urine RBC 100 /hpf Urine WBC /hpf Urine WBC Clumps MANY Urine Squamous Epithelial 1 /hpf Cells Urine Bacteria MANY /hpf Urine Hyaline Casts 20 /lpf Urine Mucus MOD /lpf Microscopic Urinalysis Comment CATH-CULTURE IND Urine Opiates Screen NEG Urine Barbiturates Screen NEG Urine Amphetamines Screen NEG Urine Benzodiazepines Screen NEG Urine Cocaine Screen NEG Urine Cannabinoids Screen NEG Triglycerides Level 77 MG/DL Cholesterol Level 136 MG/DL LDL Cholesterol 54 MG/DL HDL Cholesterol 66.9 MG/DL Cholesterol/HDL Ratio 2.03 RATIO Microbiology Microbiology 06/05/16 Urine Culture, Received Pending Physical Exam General General Appearance: Well Developed, No Acute Distress, Comfortable, Obese Eyes Eye Exam: Pupils Equal, Pupils Reactive Ears & Nose Ears & Nose Exam: Nasal Mucosa [place] Throat Throat Exam: Oral Mucosa [place] & Moist Neck Neck Exam: Neck Supple, Trachea Midline Pulmonary Resp Exam: No Distress, Decreased Bases Cardiology CV Exam: Regular Gastrointestinal/Abdomen GI Exam: Soft, Non-Tender, Bowel Sounds Present, Non-Distended Musculoskeletal MS Exam: Joints Intact Integumentary Skin Exam: Clear, Warm, Dry Extremeties Extremities Exam: Pedal Pulses Palpable, Trace Edema Neurologic Neuro Exam: Alert, Awake, Oriented, Speech Clear, Moving All Extremities, No Focal Deficits Psychiatric Psych Exam: Appropriate Responses VTE Prophylaxis VTE Prophylaxis Device: SCDs PUD Prophylasis PUD Prophylaxis: Protonix Assessment/Plan Problem List: (1) Slurred speech (2) Alcohol withdrawal (3) Obesity (4) HTN (hypertension) (5) UTI (urinary tract infection) (6) COPD (chronic obstructive pulmonary disease) (7) Sleep apnea Assessment/Plan 70-year-old male presented with slurred speech, complaining of chills. Rule out TIA, versus infectious process, ETOH (recently quit) Neurologically intact Continue with neuro checks No evidence of stroke in imaging studies, possibly secondary to infection, also alcohol withdrawal Neurology consultation pending Continue with baby aspirin 81 mg by mouth daily Lipid profile results noted Hemoglobin A1c okay Continue [facility] protocol Monitor for withdrawal symptoms Alcohol abuse counseling, patient is agreeable and states he will quit Morbid obesity Patient needs to lose weight Sleep apnea stable. HTN, stable Resume lisinopril COPD, stable Ventolin inhaler when necessary We'll wait for neurology evaluation, possible discharge later today Follow up on urine culture D/W RN D/W Dr. Sam D/W pt This patient was seen by myself and Dr. Sam, this note is written on her behalf Problem Qualifiers (1) Alcohol withdrawal: Qualified Code: F10.239 - Alcohol withdrawal, with unspecified complication (2) Obesity: Qualified Code: E66.01 - Morbid obesity due to excess calories (3) HTN (hypertension): Qualified Code: I10 - Essential hypertension (4) UTI (urinary tract infection): Qualified Code: N39.0 - Urinary tract infection without hematuria, site unspecified (5) COPD (chronic obstructive pulmonary disease): Qualified Code: J44.9 - Chronic obstructive pulmonary disease, unspecified COPD type (6) Sleep apnea: Qualified Code: G47.30 - Sleep apnea, unspecified type [facility] Jun 06, 2016 10:03
[2016-06-06] MEDS ORDERED: Aspirin Chew PO (10:10)
--- NOTE | 2016-06-06 10:11 | HHI.DCPOC ---
Discharge Care Plan Diagnosis: (1) TIA (transient ischemic attack) (2) COPD (chronic obstructive pulmonary disease) (3) Slurred speech (4) UTI (urinary tract infection) (5) Alcohol withdrawal (6) Obesity (7) HTN (hypertension) (8) Sleep apnea Your Health Problems Are: Anxiety Difficulty with ADL Goals to Promote Your Health * To prevent worsening of your condition and complications * To maintain your health at the optimal level Directions to Meet Your Goals Take your medications as prescribed Follow your dietary instruction Follow activity as directed Keep your appointments as scheduled Take your immunizations and boosters as scheduled If your symptoms worsen call your PCP, if no PCP go to Urgent Care Center or Emergency Room Smoking is Dangerous to Your Health. Avoid second hand smoke Call the 24-hour hour crisis hotline for domestic abuse at [facility]. [facility] Jun 06, 2016 10:11
[2016-06-06] MEDS: PANTOPRAZOLE SOD 40 MG DELAYED RELEASE TAB PO SCH ×2 (10:34→19:57)
--- NOTE | 2016-06-06 13:31 | EKG ---
Date Performed: 06/05/2016 Time Performed: 13:00:07 PTAGE: 70 years EKG: SINUS TACHYCARDIA POSSIBLE ANTERIOR MYOCARDIAL INFARCTION PROBABLE INFERIOR MYOCARDIAL INFA RCTION ABNORMAL ECG PREVIOUS TRACING : 01/04/2011 08.36 Compared to prior tracing no significant change DOCTOR: Vernon Riley Interpretating Date/Time 06/06/2016 13:30:02
[2016-06-06] MEDS: SODIUM CHLOR 0.9% 1000 ML INJ 1,000 ML IV SCH ×2 (14:57→21:55)
[2016-06-06] MEDS: cefTRIAXone 1,000 MG/NS 100 ML IV SCH ×2 (17:00)
[2016-06-07] VITALS: BP 127/59; PULSE 104; RESP 18; TEMP 98.2; O2SAT 94
[2016-06-07 04:00] VITALS: BP 122/64; PULSE 99; RESP 19; TEMP 97.5; O2SAT 96
[2016-06-07] MEDS: HEPARIN SODIUM - SQ 10,000 UNITS/ML VIAL SQ SCH (04:34)
[2016-06-07 07:05] LABS: AUTOMATED NEUTROPHIL # 10.1 TH/MM3 (1.8-7.7); BASOPHIL % 0.3 % (0.0-2.0); EOSINOPHIL % 0.1 % (0.0-4.0); HEMATOCRIT 38.9 % (39.0-51.0); HEMO FLAGS DIFF FINAL; LYMPH % 8.3 % (9.0-44.0); LYMPHOCYTE # 1.1 TH/MM3 (1.0-4.8); MEAN CELL VOLUME 96.7 FL (80.0-100.0); MEAN CORPUSCULAR HEMOGLOBIN 32.8 PG (27.0-34.0); MEAN CORPUSCULAR HGB CONC 33.9 % (32.0-36.0); MONO % 14.4 % (0.0-8.0); NEUT % 76.9 % (16.0-70.0); PLATELET COUNT 236 TH/MM3 (150-450); RED BLOOD COUNT 4.02 MIL/MM3 (4.50-5.90); RED CELL DISTRIBUTION WIDTH 15.4 % (11.6-17.2); WHITE BLOOD COUNT 13.1 TH/MM3 (4.0-11.0)
[2016-06-07 07:27] LABS: BICARBONATE 23.9 MEQ/L (21.0-32.0); POTASSIUM 4.2 MEQ/L (3.5-5.1)
[2016-06-07] MEDS: SODIUM CHLORIDE 0.9% FLUSH 10 ML FLUSH IV FLUSH SCH (07:46)
[2016-06-07] MEDS: PANTOPRAZOLE SOD 40 MG DELAYED RELEASE TAB PO SCH (07:46)
[2016-06-07] MEDS: ASPIRIN 81 MG CHEW TAB PO SCH (07:46)
[2016-06-07] MEDS: SODIUM CHLOR 0.9% 1000 ML INJ 1,000 ML IV SCH (07:47)
[2016-06-07 08:00] VITALS: BP 146/87; PULSE 97; RESP 18; TEMP 97.7; O2SAT 97
--- NOTE | 2016-06-07 08:19 | MB ---
cc: BEKA BARBOSA M.D. DATE OF CONSULTATION 06/06/2016 REASON FOR CONSULTATION Rule out TIA. HISTORY OF PRESENT ILLNESS Mr. Cárdenas is a 70-year-old man who was in his usual state of good health until yesterday. He states he was working out in the sun, it was hot out. He suddenly developed diffuse tremulousness, but no focal deficits. He thought he might be dehydrated, drank some Gatorrade, went in the house, his symptoms persisted so he was brought to the ER. He does have a history of fairly frequent alcohol use drinking a pint sometimes a pint and a half a day. His last drink was on Friday. He states that he and his have been discussing it and he is trying to stop drinking, but he feels back to normal at this time. Two days ago, he had some slurred speech, but no focal deficits. PAST MEDICAL HISTORY Remarkable for: 1. Hypertension 2. Arthritis 3. COPD 4. Obstructive sleep apnea with C-PAP 5. Alcohol abuse 6. Bilateral knee surgery 7. Left inguinal her hernia repair 8. Tonsillectomy 9. Appendectomy ALLERGIES Unknown MEDICATION AT HOME 1. Lisinopril 2. Singulair 3. Ventolin NEUROLOGIC EXAMINATION VITAL SIGNS: Blood pressure is 158/90, pulse 93, respiratory rate is 20, temperature is 98 degrees. Higher cortical functions normal. Cranial nerves II-XII normal. Motor exam is normal strength and tone of all groups. There is no drift. Fine motor skills normal. There is no tremor. Reflexes are symmetric. MRI of the brain is normal. CT of the head is normal. Carotid ultrasound is within normal limits. MRA angiogram of the brain mild atherosclerosis. No large vessel occlusion. LABORATORY DATA White count is 11,700, hemoglobin 13.7, hematocrit 42% platelet count 258,000, PT 10.6, INR 1, APTT 25.2. Sodium is 140, potassium 3.7, chloride 106, CO2 23.1, BUN is 14, creatinine 1.17, GFR 62, glucose 139, AST 12, ALT is 26, LDL 54, cholesterol is 136. Urinalysis, the pH is 5.5, specific gravity 1.018, protein 100, 100 RBCs are seen, innumerable WBCs are seen. IMPRESSION Suspect the episode he had might of been related to dehydration as well as urinary tract infection, possible some degree of alcohol withdrawal, although I do not think it was all alcohol withdrawal as he is asymptomatic now. TIA I think would be much less likely. RECOMMENDATIONS For the room remote chance of TIA, I did suggest starting aspirin 81 mg daily. I did recommend that he curtail his alcohol intake as well. MD FERNANDO Trevizo/IWLMA /4:59 PM /8:00 AM
[2016-06-07] MEDS ORDERED: LISINOPRIL 10 MG TAB PO SCH (09:00)
--- NOTE | 2016-06-07 10:27 | HHI.PR ---
Review/Management Diagnosis probable effects of ETOH, dehydration. TIA a remote posibility Plan continue asa 81 mg daily ok from neurology standpoint to d/c home when ok with primary service I told pt to stop ETOH Diagnosis/Plan: Subjective Subjective Comments No acute events reported No headache No chest pain No dyspnea Active Medications Current Medications Medications (Trade) Dose Ordered Sig/Sera Route Start Time Stop Time Status Last Admin (NS Flush) 2 ml UNSCH PRN IVF 06/05/16 12:00 (NS Flush) 2 ml BID IV FLUSH 06/05/16 21:00 06/07/16 07:46 (NS Flush) 2 ml UNSCH PRN IV FLUSH 06/05/16 15:00 (Aspirin Chew) 81 mg DAILY PO 06/05/16 16:00 06/07/16 07:46 (Heparin Inj) 5,000 units Q12H SQ 06/05/16 16:00 06/07/16 04:34 (Romazicon Inj) 0.2 mg Q1M PRN IV PUSH 06/05/16 15:00 (Ativan) 1 mg Q4H PRN PO 06/05/16 15:00 (Ativan Inj) 1 mg Q4H PRN IV PUSH 06/05/16 15:00 (Ativan) 2 mg Q2H PRN PO 06/05/16 15:00 (Ativan Inj) 2 mg Q2H PRN IV PUSH 06/05/16 15:00 06/06/16 06:31 (Ativan Inj) 2 mg Q1H PRN IV PUSH 06/05/16 15:00 Lorazepam 2 mg 2 mg Q15M PRN IV PUSH 06/05/16 15:00 Sodium Chloride 1,000 ml @ 100 mls/hr Q10H IV 06/05/16 16:00 06/07/16 07:47 (Rocephin Inj/NS Inj) 100 ml @ 200 mls/hr Q24H IV 06/05/16 17:00 06/06/16 17:00 (Protonix) 40 mg Q12HR PO 06/05/16 21:00 06/07/16 07:46 (Prinivil) 10 mg DAILY PO 06/07/16 09:00 06/07/16 07:46 Allergies Allergies Coded Allergies No Known Allergies (Verified06/05/16) Exam I&O / VS 06/06/16 06/06/16 06/07/16 15:00 23:00 07:00 Intake Total 1233 ml 100 ml Balance 1233 ml 100 ml Intake Oral 480 ml 100 ml IV Total 753 ml # Voids 2 2 Vital Signs Date Time Temp Pulse Resp B/P Pulse Ox O2 Delivery O2 Flow Rate FiO2 06/07/16 08:00 97.7 97 18 146/87 97 06/07/16 04:00 97.5 99 19 122/64 96 06/07/16 00:00 98.2 104 18 127/59 94 06/06/16 20:00 97.4 99 19 144/82 95 06/06/16 20:00 103 06/06/16 12:00 98.1 93 20 158/90 99 06/06/16 11:00 114 Exam Comments alert, oriented, speech normal CN 2-12 normal Motor 5./5 BUE Objective Radiology Results MRI brain normal MRA brain normal carotid US normal Micro and Labs Laboratory Tests Test 06/07/16 06:33 White Blood Count 13.1 Red Blood Count 4.02 Hemoglobin 13.2 Hematocrit 38.9 Mean Corpuscular Volume 96.7 Mean Corpuscular Hemoglobin 32.8 Mean Corpuscular Hemoglobin 33.9 Concent Red Cell Distribution Width 15.4 Platelet Count 236 Mean Platelet Volume 7.4 Neutrophils (%) (Auto) 76.9 Lymphocytes (%) (Auto) 8.3 Monocytes (%) (Auto) 14.4 Eosinophils (%) (Auto) 0.1 Basophils (%) (Auto) 0.3 Neutrophils # (Auto) 10.1 Lymphocytes # (Auto) 1.1 Monocytes # (Auto) 1.9 Eosinophils # (Auto) 0.0 Basophils # (Auto) 0.0 CBC Comment DIFF FINAL Differential Comment Sodium Level 136 Potassium Level 4.2 Chloride Level 103 Carbon Dioxide Level 23.9 Anion Gap 9 Blood Urea Nitrogen 15 Creatinine 1.47 Estimat Glomerular Filtration 48 Rate Random Glucose 134 Calcium Level 8.6 Date/Time Procedure Status Source Growth 06/05/16 13:30 Urine Culture - Final Complete Urine Catheterized Urine Escherichia Coli Berto Davies PhD MD Jun 07, 2016 10:27
[2016-06-07] MEDS ORDERED: METO25TA3 PO (11:10)
--- NOTE | 2016-06-07 11:17 | HHI.PR ---
Subjective Subjective Remarks Sitting up in chair Alert, oriented 3 No tremors No fever No chest pain No shortness of breath HR elevated, ST, 100's no neuro deficits overnight wants to go home Review of Systems Constitutional Constitutional Remarks 12 point review systems completed, negative except as noted above Vitals/Results Intake & Output 06/06/16 06/06/16 06/07/16 15:00 23:00 07:00 Intake Total 1233 ml 100 ml Balance 1233 ml 100 ml Intake Oral 480 ml 100 ml IV Total 753 ml # Voids 2 2 Vital Signs Vital Signs Date Time Temp Pulse Resp B/P Pulse Ox O2 Delivery O2 Flow Rate FiO2 06/07/16 08:00 97.7 97 18 146/87 97 06/07/16 04:00 97.5 99 19 122/64 96 06/07/16 00:00 98.2 104 18 127/59 94 06/06/16 20:00 97.4 99 19 144/82 95 06/06/16 20:00 103 06/06/16 12:00 98.1 93 20 158/90 99 CBC/BMP: 06/07/16 0633 06/07/16 0633 Lab Results Laboratory Tests Test 06/07/16 06:33 White Blood Count 13.1 TH/MM3 Red Blood Count 4.02 MIL/MM3 Hemoglobin 13.2 GM/DL Hematocrit 38.9 % Mean Corpuscular Volume 96.7 FL Mean Corpuscular Hemoglobin 32.8 PG Mean Corpuscular Hemoglobin 33.9 % Concent Red Cell Distribution Width 15.4 % Platelet Count 236 TH/MM3 Mean Platelet Volume 7.4 FL Neutrophils (%) (Auto) 76.9 % Lymphocytes (%) (Auto) 8.3 % Monocytes (%) (Auto) 14.4 % Eosinophils (%) (Auto) 0.1 % Basophils (%) (Auto) 0.3 % Neutrophils # (Auto) 10.1 TH/MM3 Lymphocytes # (Auto) 1.1 TH/MM3 Monocytes # (Auto) 1.9 TH/MM3 Eosinophils # (Auto) 0.0 TH/MM3 Basophils # (Auto) 0.0 TH/MM3 CBC Comment DIFF FINAL Differential Comment Sodium Level 136 MEQ/L Potassium Level 4.2 MEQ/L Chloride Level 103 MEQ/L Carbon Dioxide Level 23.9 MEQ/L Anion Gap 9 MEQ/L Blood Urea Nitrogen 15 MG/DL Creatinine 1.47 MG/DL Estimat Glomerular Filtration 48 ML/MIN Rate Random Glucose 134 MG/DL Calcium Level 8.6 MG/DL Physical Exam General General Appearance: Well Developed, No Acute Distress, Comfortable, Obese Eyes Eye Exam: Pupils Equal, Pupils Reactive Ears & Nose Ears & Nose Exam: Nasal Mucosa [place] Throat Throat Exam: Oral Mucosa [place] & Moist Neck Neck Exam: Neck Supple, Trachea Midline Pulmonary Resp Exam: No Distress, Decreased Bases Cardiology CV Exam: Tachycardia Gastrointestinal/Abdomen GI Exam: Soft, Non-Tender, Bowel Sounds Present, Non-Distended Musculoskeletal MS Exam: Joints Intact Integumentary Skin Exam: Clear, Warm, Dry Extremeties Extremities Exam: Pedal Pulses Palpable, Trace Edema Neurologic Neuro Exam: Alert, Awake, Oriented, Speech Clear, Moving All Extremities, No Focal Deficits Psychiatric Psych Exam: Appropriate Responses VTE Prophylaxis VTE Prophylaxis Device: SCDs PUD Prophylasis PUD Prophylaxis: Protonix Assessment/Plan Problem List: (1) Slurred speech (2) Alcohol withdrawal (3) Obesity (4) HTN (hypertension) (5) UTI (urinary tract infection) (6) COPD (chronic obstructive pulmonary disease) (7) Sleep apnea Assessment/Plan 70-year-old male presented with slurred speech, complaining of chills. Rule out TIA, versus infectious process, ETOH (recently quit) Neurologically intact Continue with neuro checks No evidence of stroke in imaging studies, possibly secondary to infection, also alcohol withdrawal Neurology consultation , input appreciated, kevin. symptoms due to infection, dehydration, ETOH, recommends baby ASA Continue with baby aspirin 81 mg by mouth daily Lipid profile results noted Hemoglobin A1c okay Continue [facility] protocol Monitor for withdrawal symptoms Alcohol abuse counseling, patient is agreeable and states he will quit Morbid obesity Patient needs to lose weight Sleep apnea stable. CPAP from home HTN, stable continue lisinopril Tachycardic, HR up to 110s start Lopressor 25 mg po bid COPD, stable Ventolin inhaler when necessary plan to discharge later today F/U PCP diet -heart healthy activity-as tolerated needs to lose weight, smaller portions quit drinking D/W RN D/W Dr. Sam D/W pt This patient was seen by myself and Dr. Sam, this note is written on her behalf Problem Qualifiers (1) Alcohol withdrawal: Qualified Code: F10.239 - Alcohol withdrawal, with unspecified complication (2) Obesity: Qualified Code: E66.01 - Morbid obesity due to excess calories (3) HTN (hypertension): Qualified Code: I10 - Essential hypertension (4) UTI (urinary tract infection): Qualified Code: N39.0 - Urinary tract infection without hematuria, site unspecified (5) COPD (chronic obstructive pulmonary disease): Qualified Code: J44.9 - Chronic obstructive pulmonary disease, unspecified COPD type (6) Sleep apnea: Qualified Code: G47.30 - Sleep apnea, unspecified type [facility] Jun 07, 2016 11:17
--- NOTE | 2016-06-07 11:22 | HHI.DS ---
Discharge Summary Admission Date Jun 05, 2016 at 14:56 Discharge Date: Jun 07, 2016 Admitting Diagnosis POSSIBLE TIA/ ALCOHOL WITHDRAWAL (1) TIA (transient ischemic attack) (2) Slurred speech (3) UTI (urinary tract infection) (4) COPD (chronic obstructive pulmonary disease) (5) Alcohol withdrawal (6) Obesity (7) HTN (hypertension) (8) Sleep apnea CBC/BMP: 06/07/16 0633 06/07/16 0633 Significant Findings Laboratory Tests Test 06/05/16 06/05/16 06/06/16 06/07/16 12:05 13:30 05:43 06:33 Estimat Glomerular Filtration 61 ML/MIN (>89) 62 ML/MIN (>89) 48 ML/MIN (>89) Rate Random Glucose 125 MG/DL 139 MG/DL 134 MG/DL (74-106) (74-106) (74-106) Aspartate Amino Transf 12 U/L (15-37) (AST/SGOT) Troponin I LESS THAN 0.02 NG/ML (0.02-0.05) White Blood Count 13.5 TH/MM3 11.7 TH/MM3 13.1 TH/MM3 (4.0-11.0) (4.0-11.0) (4.0-11.0) Neutrophils (%) (Auto) 91.8 % 88.8 % 76.9 % (16.0-70.0) (16.0-70.0) (16.0-70.0) Lymphocytes (%) (Auto) 4.4 % 3.4 % 8.3 % (9.0-44.0) (9.0-44.0) (9.0-44.0) Neutrophils # (Auto) 12.4 TH/MM3 10.4 TH/MM3 10.1 TH/MM3 (1.8-7.7) (1.8-7.7) (1.8-7.7) Lymphocytes # (Auto) 0.6 TH/MM3 0.4 TH/MM3 (1.0-4.8) (1.0-4.8) Urine Turbidity CLOUDY (CLEAR) Urine Protein 100 mg/dL (NEG-TRACE) Urine Ketones TRACE mg/dL (NEG) Urine Occult Blood MOD (NEG) Urine Leukocyte Esterase LARGE (NEG) Urine RBC 100 /hpf (0-3) Urine WBC Clumps MANY (NONE) Urine Bacteria MANY /hpf (NONE) Urine Mucus MOD /lpf (OCC) Red Blood Count 4.35 MIL/MM3 4.02 MIL/MM3 (4.50-5.90) (4.50-5.90) HDL Cholesterol 66.9 MG/DL (40.0-60.0) Hematocrit 38.9 % (39.0-51.0) Monocytes (%) (Auto) 14.4 % (0.0-8.0) Monocytes # (Auto) 1.9 TH/MM3 (0-0.9) Creatinine 1.47 MG/DL (0.60-1.30) Imaging Last Impressions Head CT 06/05/16 1159 Signed Impressions: Service Date/Time: Sunday, June 05, 2016 12:42 - CONCLUSION: Negative for acute process. Chirag Painting MD FACR Chest X-Ray 06/05/16 1159 Signed Impressions: Service Date/Time: Sunday, June 05, 2016 12:27 - CONCLUSION: No acute disease. Chirag Painting MD FACR Head Magnetic Resonance Angiography 06/05/16 0000 Signed Impressions: Service Date/Time: Sunday, June 05, 2016 17:12 - CONCLUSION: Mild atherosclerotic intracranial vascular disease. Chirag Painting MD FACR Carotid Artery Ultrasound 06/05/16 0000 Signed Impressions: Service Date/Time: Sunday, June 05, 2016 21:31 - CONCLUSION: 1. No hemodynamically significant stenosis identified in the carotid arteries. Vertebral artery flow is antegrade. Roldan Casarez MD Brain MRI 06/05/16 0000 Signed Impressions: Service Date/Time: Sunday, June 05, 2016 17:12 - CONCLUSION: No acute findings. No recent infarct. Mild chronic ischemic changes in the periventricular white matter. Roldan Casarez MD Hospital Course This is a pleasant 70-year-old white male who came in to the emergency room for evaluation. He was in his usual state of health until the past few days when his and he noted some slurred speech yesterday. The patient is a chronic alcohol abuser and according to the has been a heavy drinker for the past 10 years. She also notes that the drinking has been even heavier over the past two years. The patient and his had a discussion about the alcohol and he quit cold turkey 2 days prior. The patient did note a mild headache this past evening but other than that denies any fever, chills. No chest pain. No shortness of breath. No nausea or vomiting, diarrhea or constipation. The patient was outside this a.m. working in the yard. He stated that he had nothing to eat and he noted some lightheadedness. He came in to get some Gatorade and to sit down for a few minutes and had a hard chill which he described as tremors all over his body. His at that point called EMS to bring him to the hospital to be evaluated. The patient also had noted some slurred speech today during that period of time. The patient is morbidly obese, resting on the stretcher, alert, oriented and a good historian. The patient did appear slightly anxious and does note panic attacks or anxiety at home sometimes. He stated that he sometimes has no reason for the panic attacks to occur. Patient was evaluated in emergency room, workup was initiated. LABORATORY DATA Diagnostic data, WBC count 13.5, RBC 4.65, hemoglobin 15, hematocrit 44.3, platelet count 311. Neutrophil auto count 91.8. Lymphocytes 4.4. Monocytes 3.1. Chemistries, sodium 137, potassium 3.9, chloride 102, carbon dioxide 25.5, anion gap 10, BUN 14, creatinine 1.19. GFR 61. Random glucose 125. He has an A1c that is pending. Calcium 9.1. AST 12, ALT 26. Alkaline phosphatase 105. Troponin less than 0.02. Total protein 7.3. Albumin 3.5. Urine is yellow, cloudy, pH of 5.5, specific gravity 1.018, protein positive at 100. Negative glucose. Trace ketones. Moderate amount of blood. Negative for nitrites, bilirubin. 2 urobilinogen. Leukocyte esterase large. Rbc's count 100, many white count clumps. Urine bacteria many. Moderate amount of mucus. Culture and sensitivity has been ordered. Toxicology screen is negative for opiates, barbiturates, amphetamines, benzodiazepines, cocaine and cannabis. PT / INR is 1. IMAGING A chest x-ray shows no acute disease. Head CT scan negative for any acute process. Patient was admitted for further evaluation and treatment: (1) Slurred speech, poss TIA (2) Alcohol withdrawal (3) Obesity (4) HTN (hypertension) (5) UTI (urinary tract infection) (6) COPD (chronic obstructive pulmonary disease) (7) Sleep apnea During the course of the hospitalization, the following took place: 70-year-old male presented with slurred speech, complaining of chills. Rule out TIA, versus infectious process, ETOH (recently quit). Patient admitted, put on IV fluids. Neuro workup initiated Remain Neurologically intact Started on baby aspirin Continued with neuro checks No evidence of stroke in imaging studies, possibly secondary to infection, also alcohol withdrawal Neurology consultation was obtained , input appreciated, poss. symptoms due to infection, dehydration, ETOH, recommended to continue baby ASA Lipid profile results noted Hemoglobin A1c okay Was treated for UTI with IV antibiotic Rocephin Urine culture positive for Escherichia coli He was counseled about alcohol abuse, put on CIWA protocol Monitored for withdrawal symptoms only required small dose of Ativan Alcohol abuse counseling, patient was agreeable and stated he will quit Morbid obesity Patient needs to lose weight Sleep apnea stable. Was continued on CPAP HTN, stable continued lisinopril Was noted tachycardic, HR up to 110s. ST/SA started Lopressor 25 mg po bid-improved COPD, stable Ventolin inhaler when necessary Patient's symptoms improve, no slurring of speech Patient cleared for discharge by neurology Patient discharged home in stable condition Patient encouraged to increase exercise, portion control, weight lost Counseled about alcohol abuse, patient was agreeable Pt Condition on Discharge: Stable Discharge Disposition: Discharge Home Discharge Instructions DIET: Follow Instructions for: Heart Healthy Diet Activities you can perform: Weight Bearing as Hailey Follow up Referrals: PCP Follow-up New Medications: Metoprolol Tartrate (Metoprolol Tartrate) 25 Mg Tab 25 MG PO Q12HR Blood Pressure Management #60 Ref 1 TAB ([Aspirin Chew]) 81 MG CHEW 81 MG PO DAILY Stroke Prevention #30 Ref 1 TAB.CHEW Continued Medications: Albuterol 18 GM Inh (Ventolin Hfa 18 GM Inh) 90 Mcg/Act Aer 1 PUFF INH Q4H PRN SHORTNESS OF BREATH #1 Ref 0 INHALER Lisinopril (Lisinopril) 10 Mg Tab 10 MG PO DAILY #30 Ref 0 TAB Montelukast (Singulair) 5 Mg Chew Unknown Dose CHEW HS #30 Ref 0 TAB Makayla Little Jun 07, 2016 11:22 we will go ahead and give him Rocephin IV and he will be on Rocephin daily. Deep venous thrombosis prophylaxis with heparin. Alcohol withdrawal orders which will include Ativan. Cardiac monitoring. The patient is not a non diabetic but does have mildly elevated blood glucoses. We will do Accu-Chek before meals an bedtime. Sliding scale insulin if needed. His A1c is pending. The patient can be out of the bed to bedside commode and up in the chair with assistance for his safety. We will place him on ASA. We will give him Protonix for peptic ulcer disease prophylaxis. Sequential compression devices. Nurse will evaluate swallow at the bedside. Consulted stroke navigator. Monitor his alcohol withdrawal. He will also have gentle hydration, regular diet. The patient has multiple medical comorbidities which we are going to require active aggressive treatment and we will follow. (1) Slurred speech (2) Alcohol withdrawal (3) Obesity (4) HTN (hypertension) (5) UTI (urinary tract infection) (6) COPD (chronic obstructive pulmonary disease) (7) Sleep apnea Assessment/Plan 70-year-old male presented with slurred speech, complaining of chills. Rule out TIA, versus infectious process, ETOH (recently quit) Neurologically intact Continue with neuro checks No evidence of stroke in imaging studies, possibly secondary to infection, also alcohol withdrawal Neurology consultation , input kevin larios. symptoms due to infection, dehydration, ETOH, recommends baby ASA Continue with baby aspirin 81 mg by mouth daily Lipid profile results noted Hemoglobin A1c okay Continue CIWA protocol Monitor for withdrawal symptoms Alcohol abuse counseling, patient is agreeable and states he will quit Morbid obesity Patient needs to lose weight Sleep apnea stable. CPAP from home HTN, stable continue lisinopril Tachycardic, HR up to 110s start Lopressor 25 mg po bid COPD, stable Ventolin inhaler when necessary plan to discharge later today F/U PCP diet -heart healthy activity-as tolerated needs to lose weight, smaller portions quit drinking Pt Condition on Discharge: Stable Discharge Disposition: Discharge Home Discharge Instructions DIET: Follow Instructions for: Heart Healthy Diet Activities you can perform: Weight Bearing as Hailey Follow up Referrals: PCP Follow-up New Medications: Metoprolol Tartrate (Metoprolol Tartrate) 25 Mg Tab 25 MG PO Q12HR Blood Pressure Management #60 Ref 1 TAB ([Aspirin Chew]) 81 MG CHEW 81 MG PO DAILY Stroke Prevention #30 Ref 1 TAB.CHEW Continued Medications: Albuterol 18 GM Inh (Ventolin Hfa 18 GM Inh) 90 Mcg/Act Aer 1 PUFF INH Q4H PRN SHORTNESS OF BREATH #1 Ref 0 INHALER Lisinopril (Lisinopril) 10 Mg Tab 10 MG PO DAILY #30 Ref 0 TAB Montelukast (Singulair) 5 Mg Chew Unknown Dose CHEW HS #30 Ref 0 TAB Makayla LittleP Jun 07, 2016 11:22
[2016-06-07 12:00] VITALS: BP 155/79; PULSE 91; RESP 18; TEMP 98.1; O2SAT 93
[2016-06-07] MEDS ORDERED: METOPROLOL TARTRATE 25 MG TAB PO SCH (12:00)
== END 2016-06-07 13:04 | disposition home or self-care (01) | DRG 690 ==
LOC: NEPE 11:22 → NEDA 14:14 → OBSVTOIN 14:56 → NEDA 15:03 → N04A 18:07
PROVIDERS: ADMIT Specialist; ATTEND Specialist
DX: N39.0 Urinary tract infection, site not specified (principal); Z68.43 Body mass index [BMI] 50.0-59.9, adult; J44.9 Chronic obstructive pulmonary disease, unspecified; F10.239 Alcohol dependence with withdrawal, unspecified; G47.33 Obstructive sleep apnea (adult) (pediatric); I10 Essential (primary) hypertension; E66.01 Morbid (severe) obesity due to excess calories; F41.0 Panic disorder [episodic paroxysmal anxiety]; E86.0 Dehydration; B96.20 Unspecified Escherichia coli [E. coli] as the cause of diseases classified elsewhere
CPT/HCPCS: 70450; 70544; 70551; 71010; 76937; 80048; 80053; 80061; 80307; 81001; 82948; 83036; 84484; 85025; 85610; 85730; 87077; 87086; 87186; 93005; 93306; 93880; 96361; 96374; J0696; J1644; J2060; J7030